=== PATIENT | male | born 1960 | race Caucasian/White ===

== ENCOUNTER → 2021-05-12 09:31 | Outpatient (CLI) | payer OTHER ==
[2021-05-12 10:16] LABS: BASOPHILS 1.3 % (0-2); EOSINOPHILS 0.8 % (0-7); HEMATOCRIT 44.1 % (42.0-54.0); HEMOGLOBIN 14.7 g/dL (13.5-17.5); LYMPHOCYTES 22.2 % (15-50); MCH 32.7 pg (26.0-34.0); MCHC 33.3 g/dL (31.0-37.0); MCV 98.3 fL (80.0-100.0); MEAN PLATELET VOLUME 7.3 fL (7.4-10.4); MONOCYTES 16.1 % (2-11); NEUTROPHILS 59.6 % (40-80); PLATELET COUNT 223 10x3/uL (130-400); RBC 4.49 10x6/uL (4.20-6.10); RDW 12.7 % (11.5-14.5); WBC 4.5 10x3/uL (4.8-10.8)
[2021-05-12 10:28] LABS: APTT 28.1 SECONDS (22.8-39.4); INR 1.01 (0.85-1.17); PROTIME 12.3 SECONDS (11.6-15.0)
[2021-05-12 10:42] LABS: % SATURATION 51 % (15-55); IRON 188 ug/dl (35-150); TOTAL IRON BIND CAPACITY 363 ug/dl (260-445); UNSAT IRON BIND CAPACITY 175 ug/dl (150-375)
[2021-05-12 11:13] LABS: ALKALINE PHOSPHATASE 69 U/L (30-120); ALT (SGPT) 224 U/L (10-68); BILIRUBIN - DIRECT 0.23 mg/dL (0.00-0.30); BILIRUBIN - INDIRECT 0.19 mg/dL (0.00-1.00); BILIRUBIN - TOTAL 0.42 mg/dL (0.2-1.3); CALC OSMOLALITY 278 mosm/kg (275-300); CARBON DIOXIDE 26.7 mmol/L (21.0-32.0); CHLORIDE - SERUM 104 mmol/L (98-107); CHOL - HDL RATIO 2.6 ratio (2.3-4.9); CHOLESTEROL, TOTAL 199 mg/dL (0-200); CREATININE - SERUM 0.8 mg/dL (0.6-1.3); GAMMA GT 284 U/L (5-85); GLUCOSE 132 mg/dL (74-106); HDL CHOLESTEROL 77 mg/dL (32-96); LDL CHOLESTEROL 107 mg/dL (0-100); LDL-HDL RATIO 1.4 ratio (1.5-3.5); POTASSIUM - SERUM 4.2 mmol/L (3.5-5.1); PROTEIN - SERUM 7.9 g/dL (6.4-8.2); SODIUM 140 mmol/L (136-145); TRIGLYCERIDE 79 mg/dL (30-200); UREA NITROGEN 8 mg/dL (7-18); eGFR NON AFRICAN AMERICAN > 90 mL/min (90-120)
[2021-05-12 11:14] LABS: FERRITIN 2408 ng/mL (3-244)
[2021-05-13 07:15] LABS: HAPTOGLOBIN 93 mg/dL (32-363)
[2021-05-13 09:13] LABS: ANA REFLEX - DIRECT Negative (Negative)
[2021-05-13 14:11] LABS: ALPHA FETOPROTEIN -(TUMOR MRK) 4.5 ng/mL (0.0-8.3)
== END | disposition home or self-care (01) ==
LOC: D.LAB 09:31
PROVIDERS: ATTEND Internal Medicine Gastroenterology
DX: K76.0 Fatty (change of) liver, not elsewhere classified (principal); R74.8 Abnormal levels of other serum enzymes